=== PATIENT | female | born 1960 | race Caucasian/White ===

== ENCOUNTER → 2024-09-14 | Outpatient (CLI) | payer BC, SELFPAY ==
--- NOTE | 2024-09-14 09:00 | XR_ITS ---
Examination: Breast ultrasound complete, bilateral Date and time of exam: September 14, 2024 0910 hours INDICATIONS: Mammogram April 29, 2023 6 mm focal asymmetry outer left breast CC view Technique: Real-time grayscale ultrasonographic imaging bilateral breasts, including all 4 quadrants as well as nipple retroareolar and axillary regions. Findings: Sonographic images right breast 3:00 oval mass circumscribed 6 x 6 mm O'clock cyst 5 x 5 mm Sonographic images left breast 2:00 oval mass circumscribed 5 x 7 mm IMPRESSION: BI-RADS Category 3: Probably benign findings One additional 6 month bilateral breast sonography follow-up is needed to document stability of breast nodules described above
--- NOTE | 2024-09-14 09:00 | XR_ITS ---
Examination: Screening digital mammography, bilateral Computer aided detection 3-D breast Tomosynthesis, bilateral Date and time of exam: September 14, 2024 at 0901 hours Compared to mammograms dating to January 13, 2018 Indication: Screening Technique: Nonmagnified MLO, CC views of the breasts to been obtained, reconstructed from 3-D Tomosynthesis images. R2 computer aided detection program utilized for evaluation of suspicious masses and/or abnormal calcifications. 3-D Tomosynthesis images obtained. Findings: The breasts are heterogeneously dense, which may obscure small masses Stable focal asymmetry outer right breast CC view posterior depth Benign calcifications No interval suspicious masses Impression: BI-RADS category II: Benign Findings. Recommend 1 year follow-up mammogram.
== END | disposition home or self-care (01) ==
LOC: CDIM 08:46
PROVIDERS: PCP Pediatrics; Referring Provider Specialist; Visit Provider Specialist
DX: Z12.31 Encounter for screening mammogram for malignant neoplasm of breast (principal); R92.323 Mammographic fibroglandular density, bilateral breasts; R92.1 Mammographic calcification found on diagnostic imaging of breast; N63.15 Unspecified lump in the right breast, overlapping quadrants; N63.21 Unspecified lump in the left breast, upper outer quadrant; N60.01 Solitary cyst of right breast
CPT/HCPCS: 76641; 77063; 77067